=== PATIENT | male | born 2000 ===

== ENCOUNTER 2021-01-19 23:24 | Emergency (ER) | payer OTHER, SELFPAY ==
[~2021-01-19] VITALS: Ht 180.3 cm; Wt 68.9 kg
[2021-01-19 23:25] VITALS: BP 131/71
[2021-01-20] MEDS ORDERED: ISOVUE-370 76% 100ML VIAL As Ordered ONE (00:35)
[2021-01-20 00:45] LABS: ALBUMIN 4.1 GM/DL (3.2-5.2); ALT/SGPT 21 U/L (12-78); BILIRUBIN,DIRECT < 0.1 MG/DL (0.0-0.2); BILIRUBIN,TOTAL 0.3 MG/DL (0.2-1.0); BLOOD UREA NITROGEN 12 MG/DL (7-18); CALCIUM LEVEL 8.9 MG/DL (8.5-10.1); CARBON DIOXIDE LEVEL 26 MEQ/L (21-32); CHLORIDE LEVEL 110 MEQ/L (98-107); CK-MB VALUE MASS < 1.0 NG/ML (<3.6); CPK CREATINE PHOSPHOKINASE 138 U/L (39-308); CREATININE FOR GFR 0.88 MG/DL (0.70-1.30); GLOMERULAR FILTRATION RATE > 60.0 (>60); GLUCOSE, FASTING 73 MG/DL (70-100); LIPASE 97 U/L (73-393); MB/CK RELATIVE INDEX 0.72 (< OR =4); POTASSIUM SERUM 3.7 MEQ/L (3.5-5.1); SODIUM LEVEL 141 MEQ/L (136-145); TROPONIN I < 0.02 NG/ML (< 0.10)
[2021-01-20 00:47] LABS: BASO # 0.1 10^3/uL (0.0-0.2); EOS # 0.5 10^3/uL (0.0-0.5); EOS % 5.2 % (0.0-3.0); HEMATOCRIT 51.2 % (42.0-52.0); HEMOGLOBIN 16.9 g/dl (13.5-17.5); LYMPH # 3.7 10^3/uL (1.5-5.0); LYMPH % 38.8 % (24.0-44.0); MEAN CORPUSCULAR HEMOGLOBIN 28.8 pg (27.0-33.0); MEAN CORPUSCULAR VOLUME 87.4 fl (80.0-96.0); MONO # 0.7 10^3/uL (0.0-0.8); MONO % 6.8 % (2.0-8.0); NEUTROPHILS # 4.6 10^3/uL (1.5-8.5); NEUTROPHILS % 47.9 % (36.0-66.0); PLATELET COUNT, AUTOMATED 266 10^3/uL (150-450); RED BLOOD COUNT 5.86 10^6/uL (4.30-6.10); WHITE BLOOD COUNT 9.5 10^3/uL (4.0-10.0)
--- NOTE | 2021-01-20 02:26 | REPVR ---
PROCEDURE INFORMATION: Exam: XR Chest Exam date and time: 01/19/2021 12:06 AM Age: 20 years old Clinical indication: Other: Chest pain TECHNIQUE: Imaging protocol: XR of the chest. Views: 2 views. COMPARISON: No relevant prior studies available. FINDINGS: Lungs: Clear. No consolidation. Pleural spaces: No pleural effusion. No pneumothorax. Heart/Mediastinum: Unremarkable. No cardiomegaly. Bones/joints: Unremarkable. IMPRESSION: No acute findings. Electronically signed by: Godwin Vale On 01/20/2021 02:26:33 AM
--- NOTE | 2021-01-20 05:39 | ECGEPIP ---
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
== END 2021-01-20 01:21 | disposition left against medical advice (07) ==
LOC: M ED 23:24
DX: Z53.21 Procedure and treatment not carried out due to patient leaving prior to being seen by health care provider (principal)

== ENCOUNTER 2021-10-18 10:21 | Emergency (ER) | payer OTHER, SELFPAY ==
[~2021-10-18] VITALS: Ht 180.3 cm; Wt 68.2 kg
[2021-10-18 10:54] VITALS: BP 116/69
== END 2021-10-18 13:50 | disposition left against medical advice (07) ==
LOC: M ED 10:21
DX: Z53.21 Procedure and treatment not carried out due to patient leaving prior to being seen by health care provider (principal)